=== PATIENT | male | born 2000 | race Caucasian/White ===

== ENCOUNTER 2023-02-13 18:59 | Emergency (ER) | payer MEDICAID ==
[~2023-02-13] VITALS: Ht 170.2 cm; Wt 80.4 kg
[2023-02-13 19:13] VITALS: BP 129/79
[2023-02-13 19:39] LABS: BASOPHILS # (AUTO) 0.1 X10'3 (0-0.2); BASOPHILS % (AUTO) 0.4 % (0-1); EOSINOPHILS # (AUTO) 0.4 X10'3 (0-0.9); HEMATOCRIT 47.5 % (42.0-52.0); HEMOGLOBIN 16.3 g/dl (14.0-17.9); LYMPHOCYTES % (AUTO) 13.5 % (21-51); MEAN CORPUSCULAR HEMOGLOBIN 30.4 PG (27.0-31.0); MEAN CORPUSCULAR HGB CONC 34.4 g/dL (33.0-36.5); MEAN CORPUSCULAR VOLUME 88.3 FL (78-98); MEAN PLATELET VOLUME 7.6 FL (7.4-10.4); MONOCYTES # (AUTO) 0.9 X10'3 (0-0.9); MONOCYTES % (AUTO) 6.3 % (2-12); NEUTROPHILS # (AUTO) 11.2 X10'3 (1.8-7.7); NEUTROPHILS % (AUTO) 76.8 % (42-75); PLATELET COUNT 323 X10'3 (140-440); RED BLOOD COUNT 5.38 X10'6 (4.70-6.10); RED CELL DISTRIBUTION WIDTH 12.2 % (11.5-14.5); WHITE BLOOD COUNT 14.6 X10'3 (4.5-11.0)
[2023-02-13 19:51] LABS: ALANINE AMINOTRANSFERASE 20 U/L (12-78); ALBUMIN 4.6 G/DL (3.4-5.0); ALBUMIN/GLOBULIN RATIO 1.2 (1.1-1.5); ALKALINE PHOSPHATASE 83 IU/L (46-116); ANION GAP 9 (8-16); ASPARTATE AMINO TRANSFERASE 16 U/L (10-37); BILIRUBIN,TOTAL 0.3 MG/DL (0.1-1.0); BLOOD UREA NITROGEN 14 MG/DL (7-18); BUN/CREATININE RATIO 12.4 (10.0-20.0); CALCIUM 9.5 MG/DL (8.5-10.1); CHLORIDE 102 MMOL/L (99-107); CREATININE 1.13 MG/DL (0.60-1.10); GLUCOSE 95 MG/DL (70-104); LIPASE 112 U/L (73-393); POTASSIUM 3.9 MMOL/L (3.5-5.1); SODIUM 142 MMOL/L (135-145); TOTAL CARBON DIOXIDE 31.5 MMOL/L (24-32); TOTAL PROTEIN 8.4 G/DL (6.4-8.2); eGFR 80 ML/MIN
[2023-02-13] MEDS ORDERED: PANT20TA18 PO (20:54)
== END 2023-02-13 21:10 | disposition home or self-care (01) ==
LOC: ER 19:00
DX: R42 Dizziness and giddiness (principal); R11.10 Vomiting, unspecified
CPT/HCPCS: 36415; 80053; 83690; 85025; 99283

== ENCOUNTER 2025-05-31 16:37 | Emergency (ER) | payer MEDICAID, OTHER ==
[~2025-05-31] VITALS: Ht 170.2 cm; Wt 83.5 kg
[~2025-05-31 16:37] MED LIST: PANT20TA18 PO
[2025-05-31 16:50] VITALS: BP 160/82; RESP 18; O2SAT 99
--- NOTE | 2025-05-31 17:57 | Physician Documentation ---
History of Present Illness ~ Chief Complaint: Head Injury Stated Complaint: HIT HEAD AT WORK YESTERDAY Time Seen by MD: 16:54 OK to notify your PCP?: Yes Primary Medical Doctor: [facility] Source: patient, RN/ HPI Patient is seen today with complaints of headache after he accidentally hit himself in the head with a dashboard of a car that was plastic forcibly. Patient states he woke up this morning with excruciating headache with associated nausea and vomiting. Patient denies any changes in vision or hearing but does admit to light sensitivity sensitivity to sound. Patient has no other concern or complaint at this time. Tetanus within 5 years?: No Medication Reconciliation Allergies: Coded Allergies: No Known Allergies (Unverified , 05/31/25) Scheduled Pantoprazole Sodium (Protonix), 1 TAB PO DAILY Past Medical History Past Medical History: No Pertinent History Past Surgical History: noncontributory Alcohol Use: None Drug Use: none Lives with: Family Lives In: Home Occupation: child Review of Systems Constitutional: Denies: chills, fever, weakness Eyes: Denies: pain, blurred vision ENT: Denies: ear pain, nose pain, throat pain, mouth pain Respiratory: Denies: cough, shortness of breath Cardiovascular: Denies: chest pain, palpitations Gastrointestinal: Denies: abdominal pain, nausea, vomiting Genitourinary: Denies: burning, dysuria Male Genitalia: Denies: penile discharge, testicular pain Neurological: Denies: headache, dizziness Musculoskeletal: Denies: pain, swelling Integumentary: Denies: rash, lesions Allergic/Immunologic: Denies: hives, itching Hematologic/Lymphatic: Denies: no symptoms reported Psychiatric: Denies: depression, anxiety Physical Exam Vital Signs: Temperature: 97.8, Source: Temporal, Heart Rate: 90, Respiratory Rate: 18, BP: 160/82, Pulse Oximetry: 99, Weight: 83.500 Physical Exam General: Awake and Alert, no acute distress. HEENT: Patient on exam does have a very mild abrasion and bruise to the right side of the forehead with tenderness to palpation. PERRLA, EOM intact bilaterally. Conjunctiva pink, Sclera clear, Mucus Membranes moist. Neck: Supple without masses and tenderness. Resp: Unlabored. Lungs clear to auscultation bilaterally. Heart: Regular Rate and rhythm, normal S1 and S2 without murmur, rub or gallop. Abdomen: Soft and non tender no organomegaly Extremities: No cyanosis,clubbing or edema. Skin: Warm and Dry. Progress Results/Orders Results/Orders Completed Orders - JIMI COYEW Prieto AGUIAR Acetaminophen 325mg Tablet (Tylenol Tabl (05/31/25 17:57) Ibuprofen Tablet (Motrin Tablet) (05/31/25 18:00) Medications Received in ER Medications (Trade) Dose Ordered Sig/Josh Route PRN Reason Start Time Stop Time Status Last Admin Dose Admin (Tylenol tablet) 650 mg ONCE STAT PO 05/31/25 17:57 05/31/25 18:00 DC 05/31/25 18:06 650 MG (Motrin tablet) 800 mg ONCE ONCE PO 05/31/25 18:00 05/31/25 18:01 DC 05/31/25 18:06 800 MG Vital Signs 05/31/25 16:50 Temp 97.8 Pulse 90 Resp 18 B/P (MAP) 160/82 Pulse Ox 99 Medical Decision Making Findings Patient is seen today with complaints of headache after he accidentally hit himself in the head with a dashboard of a car that was plastic forcibly. Patient states he woke up this morning with excruciating headache with associated nausea and vomiting. Patient denies any changes in vision or hearing but does admit to light sensitivity sensitivity to sound. Patient has no other concern or complaint at this time. Patient will be kept off work for a few days. Patient will continue Tylenol and ibuprofen as needed for symptomatic relief. Patient will use postconcussive return to work protocol and will slowly advance activity level as tolerated. Patient will be very careful to not re-injure and will avoid recurrent head strike in the near future. Patient will follow up with primary care in 2-5 days if no better as needed sooner. Return to ED with any worsening, concerning or changing symptoms. Departure Disposition: 01 HOME / SELF CARE / HOMELESS Impression: Primary Impression: Concussion Qualified Codes: S06.0X0A - Concussion without loss of consciousness, initial encounter Condition: Improved Discharge Instructions: Post Concussion Syndrome,Adult Additional Instructions: Patient will be kept off work for a few days. Patient will continue Tylenol and ibuprofen as needed for symptomatic relief. Patient will use postconcussive return to work protocol and will slowly advance activity level as tolerated. Patient will be very careful to not re-injure and will avoid recurrent head strike in the near future. Patient will follow up with primary care in 2-5 days if no better as needed sooner. Return to ED with any worsening, concerning or changing symptoms. Departure Forms: Excuse form Work or School Excused From: Work Excuse beginning now through the following date: Jun 07, 2025 Referrals: NO PRIMARY CARE PROVIDER (PCP) Prescriptions Ibuprofen (Ibuprofen) 800 Mg Tablet 1 TAB PO Q8H for pain for 10 Days, #30 TAB 0 Refills Prov: CHAD COY 05/31/25 Signature Scribe Signature: No scribe Attestation: No scribe CHAD COY May 31, 2025 17:57
[2025-05-31] MEDS: ibuprofen tablet 400 MG TABLET PO ONE (18:06)
[2025-05-31] MEDS ORDERED: IBUP-1986 PO (18:15)
[2025-05-31 18:28] VITALS: PULSE 87; TEMP 97.8
== END 2025-05-31 18:29 | disposition home or self-care (01) ==
LOC: ER 16:37
DX: S06.0X0A Concussion without loss of consciousness, initial encounter (principal); X58.XXXA Exposure to other specified factors, initial encounter; Y93.89 Activity, other specified; Y92.89 Other specified places as the place of occurrence of the external cause; Y99.8 Other external cause status
CPT/HCPCS: 99283

== ENCOUNTER 2025-06-20 06:20 | Emergency (ER) | payer SELFPAY ==
[~2025-06-20] VITALS: Ht 170.2 cm; Wt 81.0 kg
[~2025-06-20 06:20] MED LIST changes: +IBUP-1986 PO
[2025-06-20 06:35] VITALS: BP 126/80; PULSE 84; O2SAT 98
[2025-06-20] MEDS ORDERED: ketorolac trometh 30MG/ML vial 30 MG/ML VIAL IV ONE (07:15)
[2025-06-20] MEDS ORDERED: DICL20GE TOP (07:37)
[2025-06-20] MEDS ORDERED: CYCL-920 PO (07:37)
[2025-06-20] MEDS ORDERED: NAPR-56 PO (07:37)
[2025-06-20] MEDS ORDERED: LIDO700A47 TOP (07:37)
--- NOTE | 2025-06-20 07:37 | Physician Documentation ---
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 No obvious trigger provocation. Worse with torso motion. Ibuprofen and Tylenol are not helping. Denies any red flags of back pain such as urinary incontinence, urinary retention, fecal incontinence, saddle paresthesias, denies IV drug use, denies blood thinners. Denies any obvious trauma. No chest pain or difficulty breathing. Denies any concerns for tobacco, alcohol or illicit substances use Medication Reconciliation Allergies: Coded Allergies: No Known Allergies (Unverified , 06/20/25) Scheduled Ibuprofen (Ibuprofen), 1 TAB PO Q8H Lidocaine (Lidocaine), 1 PATCH TOP DAILY Naproxen (Naproxen), 1 TAB PO Q12H Pantoprazole Sodium (Protonix), 1 TAB PO DAILY Scheduled PRN Cyclobenzaprine HCl (Cyclobenzaprine HCl), 1 TAB PO TID PRN PRN for muscle spasms Diclofenac Sodium (Voltaren Arthritis Pain), 4 GM TOP Q12H PRN for pain Past Medical History Past Medical History: No Pertinent History Past Surgical History: noncontributory Alcohol Use: None Drug Use: none Lives with: Family Lives In: Home Occupation: child Review of Systems ROS 10 point review of systems was performed and unless noted above in HPI is negative for acute process/complaint. Physical Exam Physical Exam Vital Signs: Temperature: 97.2, Source: Temporal, Heart Rate: 84, Respiratory Rate: 20, BP: 126/80, Pulse Oximetry: 98, Weight: 81.000 Physical Exam GENERAL: Awake, alert, oriented, GCS 15, no apparent distress, non-toxic appearing, answers questions, follows commands appropriately. HEENT: Atraumatic, normocephalic, pupils equal, extraocular muscles intact, sclerae anicteric, mucus membranes moist, oropharynx is clear, no stridor. NECK: supple, full active range of motion, trachea midline, no thyromegaly, no lymphadenopathy, no JVD. CARDIOVASCULAR: regular rate/rhythm, no murmurs/gallops/rubs, Pulses are 2+ in all extremities and symmetric. Capillary refill less than 2 seconds. PULMONARY: Nonlabored, good air movement ,no respiratory distress, speaking in full sentences, clear to auscultation bilaterally, no wheezing, no ronchi, no rales, no accessory muscle use. GASTROINTESTINAL: Soft, non-tender, non-distended, normal active bowel sounds, no organomegaly, no pulsatile masses, no CVA tenderness. NEUROLOGIC: Lucid with normal mental status. Normal facial symmetry. Moves all extremities symmetrically and with purpose. No truncal ataxia. Speech is fluid without evidence of dysarthria or aphasia, no focal deficits appreciated. MUSCULOSKELETAL: There is full range of motion of all extremities. There is no joint pain or joint swelling or joint erythema. There is no muscle pain or tenderness or swelling. EXTREMITIES: warm, well-perfused, no cyanosis, no clubbing, no edema, no acute deformities. Skin: warm, dry, no rashes or lesions, no jaundice, no petechiae orpurpura. No ecchymosis. PSYCHIATRIC: Normal affect, normal insight, normal concentration. Focused exam: [No midline tenderness to palpation of thoracic, cervical, lumbar spine, no step-offs] Progress Results/Orders Results/Orders Orders - DALE DOE DO Ct Chest Abdomen Pelvis (06/20/25 07:10) Completed Orders - DALE DOE DO Ct Chest Abdomen Pelvis (06/20/25 07:10) Orphenadrine Citrate Inj. (Norflex Inj.) (06/20/25 07:15) Ketorolac Trometh 30mg/Ml Vial (Toradol (06/20/25 07:50) Vital Signs 06/20/25 06/20/25 06:35 08:01 Temp 97.2 Pulse 84 Resp 20 17 B/P (MAP) 126/80 Pulse Ox 98 Medical Decision Making Findings Facility Status: ED Holds, [facility] process The plan was discussed with the patient, who demonstrates clear understanding of the plan and is in agreement with the plan unless otherwise noted in the chart. All questions have been answered, all concerns were addressed unless otherwise documented. I was available throughout their ED stay for frequent reassessment and questions. Differential Diagnoses (considered and possible or likely): [Most likely musculoskeletal/muscle spasm, less likely lumbar thighs thoracic spine fracture or dislocation, unlikely rib fractures] ??Differential Diagnoses (considered and unlikely, not requiring evaluation currently): [No evidence of cauda equina or conus medullaris, unlikely epidural abscess or epidural hematoma] MDM Data Please see [facility] for the following: Independent Historians and external Records Review. Historian: [Patient] Independent Historians: ?[Record review] Medication Management: [Reviewed medication list] Social History and determinants: [Reviewed] Please see the body of the note for the following: Any independent interpretations of ECG, imaging studies. All vitals signs/haemodynamics, ordered tests were independently reviewed and interpreted by myself. Nursing triage complaint and vitals reviewed, additional nursing notes were reviewed as available and I agree unless otherwise noted or documented in contradiction in the chart Vital Signs: Independently reviewed Labs: Independently interpreted Imaging: Independently interpreted Old Medical Records: Independently reviewed, see [facility] for relevant summary and information Pulse Oximetry: [99%] interpreted as [normal on room air] by me Additionally notably showing: [Hemodynamically stable. CT is unremarkable for acute pathology or fracture.] Tests considered but not ordered include: [Hematologic workup has been considered but does not appear to be necessary given mechanical nature of the injury.] Social Determinants of Health Impact: Patient was evaluated in [facility], or [facility] [place] healthcare due to below par ratio of patient to medical providers. [] Comorbid Conditions Impacting Present Evaluation and Care/Treatment: [None] Management Discussions with other Healthcare Providers: [None] Treatment and Disposition Medication Management (Given or considered): [Pain management]. See EMR for details Consideration for Hospitalization/Escalation/Deescalation of Care: Admission for observation has been considered, [however the patient is able to tolerate p.o., their symptoms are controlled, they are able to rely on oral medications, and their chief complaint/diagnosis can be managed on outpatient basis.] ?ED Course:?[No clinical deterioration. Pain management worked.] ?Shared decision making:?[Patient is hemodynamically stable for discharge home with follow with their primary care provider. [ ] Specific and cautious return precautions provided and discussed with full understanding. Any incidental findings were also discussed and follow up recommendations given. [] All questions answered. Patient/family were able to verbalize back return precautions. Patient/family agree to plan. Copies of imaging and laboratory studies were provided.] Code status:?FULL Please see the full Electronic Medical Record for full details of nursing documentation, medications list, other records of complete past medical history and conditions, vital signs, laboratory studies, and any radiologic study interpretations by radiologists. Portions of this note were completed using Cardize dictation software and as a result there may exist minor errors in spelling. I have reviewed elements of past family and social history and agree as included in note. Departure Impression: Primary Impression: Strain of thoracic region Additional Impression: Strain of lumbar region Condition: Improved Discharge Instructions: Muscle Cramps and Spasms Referrals: NO PRIMARY CARE PROVIDER (PCP) Prescriptions Diclofenac Sodium (Voltaren Arthritis Pain) 1 % Gel..gram. 4 GM TOP Q12H PRN for pain for 10 Days, #100 G Prov: DALE DOE DO 06/20/25 Lidocaine (Lidocaine) 5 % Adh..patch 1 PATCH TOP DAILY for 30 Days, #30 PATCH 0 Refills Prov: DALE DOE DO 06/20/25 Naproxen (Naproxen) 500 Mg Tablet 1 TAB PO Q12H, #20 TAB Prov: DALE DOE DO 06/20/25 Cyclobenzaprine HCl (Cyclobenzaprine HCl) 5 Mg Tablet 1 TAB PO TID PRN PRN for muscle spasms for 10 Days, #30 TAB 0 Refills Prov: DALE DOE DO 06/20/25 Education Educated: Patient, Family Educated regarding: diagnosis, treatment, prognosis, need for follow up Signature Scribe Signature: No scribe Attestation: This note accurately reflects clinical decisions, work performed by myself, DO BROOK Emmanuel NICHOLAS M DO Jun 20, 2025 07:37
[2025-06-20 08:01] VITALS: RESP 17
[2025-06-20] MEDS: orphenadrine citrate 60mg/2ml inj. IM ONE (08:01)
[2025-06-20] MEDS: ketorolac trometh 30MG/ML vial 30 MG/ML VIAL IM ONE (08:01)
--- NOTE | 2025-06-20 09:10 | RADIOLOGY REPORT ---
Exam: CT CT CHEST ABDOMEN PELVIS History: R rib/chest wall pain and T/L spine pain Comparison Study: None Technique: Multidetector spiral CT of the chest, abdomen and pelvis was performed from lower neck to pubic symphysis. Intravenous contrast was administered during this examination. Portal venous imagin g was obtained. Axial, coronal and sagittal multiplanar reformats were performed by the technologist on a separate workstation. Radiation Dose : 1. Chest/Abdomen/Pelvis: CTDIvol 15.3 mGy, DLP 1055 mGy*cm. Findings: Lower neck: Normal thyroid. Lungs: No focal consolidation, pleural effusion or pneumothorax. Heart/Vascular Structures: Normal heart size. No pericardial effusion. Lymph Nodes: No adenopathy Pleura: No pleural effusion or significant pneumothorax. Liver: The liver is normal in size. No focal lesions. Normal hepatic vascular enhancement. Gallbladder and Biliary Tree: Unremarkable Spleen: Unremarkable Pancreas: The pancreas is normal in appearance without focal lesions or abnormal enhancement. Adrenal Glands: Unremarkable Kidneys: Kidneys demonstrate normal symmetric enhancement without focal lesions, calculi or hydroneph rosis. Bladder: Unremarkable Bowel: The stomach is grossly normal in appearance. Mild colonic bowel wall thickening. Normal append ix is visualized in the right lower quadrant without findings of appendicitis. Ascites: Absent Lymphadenopathy: No mesenteric, retroperitoneal or periportal lymphadenopathy. Abdominal Wall and Mesentery: Unremarkable. Vasculature: The visualized abdominal aorta is normal in size and caliber. Abdominal and pelvic vess els demonstrate normal enhancement. Pelvic Organs: Unremarkable Musculoskeletal: No aggressive focal bony lesions, acute fractures or dislocation. IMPRESSION: Mild colonic bowel wall thickening may be related to underdistention or may represent mild infectious or inflammatory colitis. Otherwise, no acute finding involving the chest, abdomen or pelvis.
[2025-06-20 09:37] VITALS: TEMP 97.2
== END 2025-06-20 09:39 | disposition home or self-care (01) ==
LOC: ER 06:20
DX: S29.012A Strain of muscle and tendon of back wall of thorax, initial encounter (principal); S39.012A Strain of muscle, fascia and tendon of lower back, initial encounter; Z79.899 Other long term (current) drug therapy; X50.0XXA Overexertion from strenuous movement or load, initial encounter; Y93.89 Activity, other specified; Y92.89 Other specified places as the place of occurrence of the external cause; Y99.8 Other external cause status
CPT/HCPCS: 71250; 74176; 99284

== ENCOUNTER 2025-08-29 07:56 | Emergency (ER) | payer MEDICAID ==
[~2025-08-29] VITALS: Ht 170.2 cm; Wt 79.3 kg
[~2025-08-29 07:56] MED LIST changes: +CYCL-920 PO; +LIDO700A47 TOP
--- NOTE | 2025-08-29 10:00 | Physician Documentation ---
HPI ~ General Chief Complaint: Tooth Problem Stated Complaint: DENTAL PAIN Time Seen by MD: 09:26 Primary Medical Doctor: [facility] History of Present Illness HPI Comment Patient is seen today with complaints of dental pain of for three days with increased pressure and swelling and pain. Patient states he has had a wisdom tooth coming in for the last few years and one in his molars his fractured and broken and gets dental abscesses from time to time. Patient denies any fever or chills. He has no other concern or complaint at this time. Medication Reconciliation Allergies: Coded Allergies: No Known Allergies (Unverified , 08/29/25) Scheduled Ibuprofen (Ibuprofen), 1 TAB PO Q8H Lidocaine (Lidocaine), 1 PATCH TOP DAILY Pantoprazole Sodium (Protonix), 1 TAB PO DAILY Scheduled PRN Cyclobenzaprine HCl (Cyclobenzaprine HCl), 1 TAB PO TID PRN PRN for muscle spasms Past Medical History Past Medical History: No Pertinent History Past Surgical History: noncontributory Alcohol Use: None Drug Use: none Lives with: Family Lives In: Home Occupation: child Review of Systems Constitutional: Denies: chills, fever, weakness Eyes: Denies: pain, blurred vision ENT: Denies: ear pain, nose pain, throat pain, mouth pain Respiratory: Denies: cough, shortness of breath Cardiovascular: Denies: chest pain, palpitations Gastrointestinal: Denies: abdominal pain, nausea, vomiting Genitourinary: Denies: burning, dysuria Male Genitalia: Denies: penile discharge, testicular pain Neurological: Denies: headache, dizziness Musculoskeletal: Denies: pain, swelling Integumentary: Denies: rash, lesions Allergic/Immunologic: Denies: hives, itching Hematologic/Lymphatic: Denies: no symptoms reported Psychiatric: Denies: depression, anxiety Physical Exam Vital Signs: Temperature: 97.8, Source: Temporal, Heart Rate: 83, Respiratory Rate: 18, BP: 114/71, Pulse Oximetry: 98, Weight: 79.300 Oxygen Flow Rate: 0 Physical Exam General: Awake and Alert, no acute distress. HEENT: Patient does have mild swelling of the right lower jaw with dental fracture and poor dentition and swelling surrounding the gums but no periapical abscess visualized at this time. Conjunctiva pink, Sclera clear, Mucus Membranes moist. Neck: Supple without masses and tenderness. Resp: Unlabored. Lungs clear to auscultation bilaterally. Heart: Regular Rate and rhythm, normal S1 and S2 without murmur, rub or gallop. Abdomen: Soft and non tender no organomegaly Extremities: No cyanosis,clubbing or edema. Skin: Warm and Dry. Progress Results/Orders Results/Orders Completed Orders - CHAD COY Ketorolac Trometh 30mg/Ml Vial (Toradol (08/29/25 09:54) Clindamycin Capsule (Cleocin Capsule) (08/29/25 09:54) Vital Signs 08/29/25 08:19 Temp 97.8 Pulse 83 Resp 18 B/P (MAP) 114/71 Pulse Ox 98 O2 Flow Rate 0 Medical Decision Making Additional information obtaine: N/A Findings Patient is seen today with complaints of dental pain of for three days with increased pressure and swelling and pain. Patient states he has had a wisdom tooth coming in for the last few years and one in his molars his fractured and broken and gets dental abscesses from time to time. Patient denies any fever or chills. He has no other concern or complaint at this time. Patient was given Toradol 30 mg IM in the ED today along with clindamycin 300 mg p.o. as well as prescription sent to patient's pharmacy for Tylenol and clindamycin. Patient will follow up with dentist as soon as possible and return to ED with any worsening, concerning or changing symptoms. Differential Dx:Considerations: Include: Facial Cellulitis, Periapical abscess, Peridontal abscess, Tooth avulsion, Tooth eruption, Tooth Fracture Departure Disposition: HOME / SELF CARE / HOMELESS Impression: Primary Impression: Dental abscess Condition: Improved Discharge Instructions: Dental Abscess Additional Instructions: Patient was given Toradol 30 mg IM in the ED today along with clindamycin 300 mg p.o. as well as prescription sent to patient's pharmacy for Tylenol and c lindamycin. Patient will follow up with dentist as soon as possible and return to ED with any worsening, concerning or changing symptoms. Referrals: NO PRIMARY CARE PROVIDER (PCP) Prescriptions Clindamycin HCl (Clindamycin HCl) 300 Mg Capsule 1 CAP PO Q8H for 10 Days, #30 CAP Prov: CHAD COY 08/29/25 Ibuprofen (Ibuprofen) 800 Mg Tablet 1 TAB PO Q8H for pain for 10 Days, #30 TAB 0 Refills Prov: CHAD COY 08/29/25 Acetaminophen (Tylenol Extra Strength) 500 Mg Tablet 2 TAB PO Q6H PRN PRN for pain or fever for 7 Days, #56 TAB Prov: CHAD COY 08/29/25 Signature Scribe Signature: No scribe Attestation: No scribe CHAD COY Aug 29, 2025 10:00
[2025-08-29] MEDS ORDERED: ACET-1025 PO (10:09)
[2025-08-29] MEDS: ketorolac trometh 30MG/ML vial 30 MG/ML VIAL IM STA (10:09)
[2025-08-29] MEDS ORDERED: CLIN300C71 PO (10:09)
[2025-08-29 10:10] VITALS: BP 128/78; PULSE 78; RESP 16; TEMP 98.4; O2SAT 99
== END 2025-08-29 10:15 | disposition home or self-care (01) ==
LOC: ER 07:57
DX: K04.7 Periapical abscess without sinus (principal); Z79.899 Other long term (current) drug therapy
CPT/HCPCS: 96372; 99283; J1885